=== PATIENT | female | born 1990 | race Two or more races ===

== ENCOUNTER 2017-10-01 15:43 | Emergency (ER) | payer OTHER ==
[~2017-10-01] VITALS: Ht 167.6 cm; Wt 64.0 kg
[2017-10-01 15:54] VITALS: BP 114/89
== END 2017-10-01 16:40 | disposition home or self-care (01) ==
LOC: ER 15:46
DX: J11.1 Influenza due to unidentified influenza virus with other respiratory manifestations (principal); Z88.8 Allergy status to other drugs, medicaments and biological substances
CPT/HCPCS: 99283; A4606; Z7610